=== PATIENT | male | born 1945 | race Caucasian/White ===

== ENCOUNTER → 2019-01-17 | Outpatient (CLI) | payer OTHER ==
[~2019-01-17] VITALS: Ht 185.4 cm; Wt 113.4 kg
[~2019-01-17] MED LIST: AMLODIPINE BESY10 MG PO; ASPIRIN325 PO; ATORVASTATIN CA40 MG PO; CLONAZEPAM 0.50.5 M1 PO; FLOMAX0.4 MG PO; HYDROCHLOROTHIA25 M2 PO; LOPRESSOR50 PO; PLAVIX 75 MG TA75 M1 PO; ZANTAC 150MG T150 MG PO
[2019-01-17 07:06] VITALS: BP 157/65
[2019-01-17 07:08] LABS: HEMATOCRIT 44.5 % (42.0-52.0); HEMOGLOBIN 15.5 gm/dL (14.0-18.0); MCH 33.4 pg (26.0-34.0); MCHC 34.9 g/dL (28.0-37.0); MCV 95.5 fL (80.0-100.0); RBC 4.66 mil/uL (4.50-6.00); RDW 13.6 % (10.5-14.5); WBC 7.2 thou/uL (4.0-11.0)
[2019-01-17 07:19] LABS: CALCIUM 9.8 mg/dL (8.5-10.1); CREATININE 0.9 mg/dL (0.7-1.3); POTASSIUM 4.2 mmol/L (3.5-5.1)
== END | disposition home or self-care (01) ==
LOC: SPEC 06:30
PROVIDERS: Nuclear Medicine Nuclear Cardiology
DX: I70.212 Atherosclerosis of native arteries of extremities with intermittent claudication, left leg (principal); I70.1 Atherosclerosis of renal artery; I10 Essential (primary) hypertension; E78.00 Pure hypercholesterolemia, unspecified; N40.0 Benign prostatic hyperplasia without lower urinary tract symptoms; E78.5 Hyperlipidemia, unspecified; F41.9 Anxiety disorder, unspecified; Z87.891 Personal history of nicotine dependence; Z98.890 Other specified postprocedural states; Z79.899 Other long term (current) drug therapy; Z79.82 Long term (current) use of aspirin

== ENCOUNTER 2019-04-14 10:02 | Inpatient (IN) | payer OTHER ==
[~2019-04-14] VITALS: Ht 185.4 cm; Wt 115.7 kg
[2019-04-14] VITALS (7 sets, daily range): BP systolic 116–193; BP diastolic 37–75
[2019-04-14 10:25] LABS: ABSOLUTE NEUTROPHILS 4.5 thou/uL (1.4-8.2); BASOPHILS 0.6 % (0.0-2.0); EOSINOPHILS 1.2 % (0.0-3.0); HEMATOCRIT 40.4 % (42.0-52.0); HEMOGLOBIN 14.1 gm/dL (14.0-18.0); LYMPHOCYTES 23.8 % (24.0-44.0); MCH 33.1 pg (26.0-34.0); MCHC 34.9 g/dL (28.0-37.0); MCV 94.7 fL (80.0-100.0); MONOCYTES 11.8 % (1.0-8.0); PLATELET COUNT 193 thou/uL (150-400); POLYS 62.6 % (36.0-66.0); RBC 4.27 mil/uL (4.50-6.00); RDW 13.4 % (10.5-14.5); WBC 7.3 thou/uL (4.0-11.0)
[2019-04-14 10:30] LABS: ANION GAP 9 mmol/L (7-16); BUN 11 mg/dL (7-18); CALCIUM 9.3 mg/dL (8.5-10.1); CHLORIDE 96 mmol/L (98-107); CO2 26 mmol/L (21-32); CREATININE 0.9 mg/dL (0.7-1.3); GLUCOSE 114 mg/dL (74-106); SODIUM 131 mmol/L (136-145)
[2019-04-14 10:40] LABS: ALBUMIN 3.8 g/dL (3.4-5.0); MAGNESIUM 1.7 mg/dL (1.8-2.4); SGOT 30 U/L (15-37); SGPT 35 U/L (30-65); TOTAL BILIRUBIN 0.8 mg/dL (<0.1-1.0); TOTAL PROTEIN 6.7 g/dL (6.4-8.2); TROPONIN-I <0.06 ng/mL (<0.06)
--- NOTE | 2019-04-14 18:09 | NUR ---
PT ADMITTED TO CCU AT 1300. STATES HE WAS AT [employer] SITTING AT A TABLE DRINKING COFFEE AND HE PASSED OUT. BP ELEVATED ON ARRIVAL TO CCU AND COMPLAINING OF HEADACHE. DR LEWIS NOTIFIED. PT GIVEN HYDRALAZINE AND TYLENOL. BP IMPROVED AND HEADACHE IMPROVED. CONSULT PLACED TO CARDIOLOGY. CARE PLAN INITIATED. WILL CONTINUE TO MONITOR PT.
[2019-04-15 02:36] VITALS: BP 136/46
--- NOTE | 2019-04-15 03:12 | NUR ---
ASSUMED CARE OF PATIENT AT 1900. VSS, AFEBRILE. EDUCATION GIVEN ABOUT LABS AND DIAGNOSTICS. DENIES ANY MORE SYNCOPAL EPISODES, PAIN OR SOA. REQUESTED CLONAZEPAM FOR SLEEP. ORDER OBTAINED. RESTING WELL THROUGH THE NIGHT. WORKING TOWARDS POC GOALS.
[2019-04-15 05:53] LABS: HEMATOCRIT 40.3 % (42.0-52.0); HEMOGLOBIN 14.2 gm/dL (14.0-18.0); MCH 33.6 pg (26.0-34.0); MCHC 35.2 g/dL (28.0-37.0); MCV 95.4 fL (80.0-100.0); RBC 4.22 mil/uL (4.50-6.00); RDW 13.6 % (10.5-14.5); WBC 7.6 thou/uL (4.0-11.0)
[2019-04-15 05:56] LABS: ANION GAP 8 mmol/L (7-16); BUN 14 mg/dL (7-18); CALCIUM 8.8 mg/dL (8.5-10.1); CHLORIDE 99 mmol/L (98-107); CO2 27 mmol/L (21-32); CREATININE 0.9 mg/dL (0.7-1.3); GLUCOSE 110 mg/dL (74-106); POTASSIUM 3.5 mmol/L (3.5-5.1); SODIUM 134 mmol/L (136-145); TROPONIN-I <0.06 ng/mL (<0.06)
[2019-04-15 07:50] VITALS: BP 162/69
[2019-04-15 11:45] VITALS: BP 153/65
[2019-04-15 15:54] VITALS: BP 140/64
--- NOTE | 2019-04-15 16:06 | NUR ---
ASSUMED CARE OF PT AT SHIFT CHANGE. ASSESSMENT CHARTED. MEDS GIVEN PER NOV. PT ALERT AND ORIENTED, VSS, O2 SATS WNL ON RA. DENIES CP, SOB. PT SB ON MONITOR RUNNING IN 40S-50S, PHYSICIAN AWARE. PT WALKED AROUND UNIT SEVERAL TIMES THIS SHIFT TOLERATING WELL. PT TO HAVE LOOP RECORDER IMPLANT TOMORROW. DENIES CONCERNS AT THIS TIME. WILL CONTINUE TO MONITOR AND FOLLOW POC.
--- NOTE | 2019-04-15 19:52 | EKG ---
[address] [place] [employer] [address] ELECTROCARDIOGRAM REPORT Name: MARISELA HERNANDEZ Room #: 205-P [facility] IN M.R.#: [id number] ������������������ Admission: 04/14/19 ������������������ Attend Phys: Troy Barroso MD Discharge: ������������������ Date of : 43 Report #: [id number] ����������������������������������������������������������������� [id number] THIS REPORT FOR: //name// [facility] ED Test Date: 2019-04-14 Test Time: 10:11:20 Pat Name: MARISELA HERNANDEZ Department: Room: 205 Gender: M Warehouse Representative: MELQUIADES : 1945 Requested By: Car Camacho Order Number: [id number] MD: Joel Dempsey Measurements Intervals Yulan Rate: 51 P: 18 MS: 252 QRS: -49 QRSD: 113 T: 22 QT: 467 QTc: 431 Interpretive Statements Sinus rhythm Prolonged MS interval Left anterior fascicular block Abnormal R-wave progression, late transition No previous ECG available for comparison Electronically Signed On 04-15-2019 19:52:07 CDT by Joel Dempsey [email or web address] ��������������������������������������������� <ELECTRONICALLY SIGNED> ���������������������������������������� By: Joel Dempsey MD ��������������������������������������������� 04/15/191951 10 10 Joel Dempsey MD /JOSEFINA
[2019-04-15 20:04] VITALS: BP 160/60
--- NOTE | 2019-04-16 04:54 | NUR ---
ASSUMED CARE OF PATIENT AT 1900. VSS, AFEBRILE. REMAINS BRADYCARDIC THROUGH THE NIGHT, ASYMPTOMATIC. DENIES PAIN, SOA OR N/V. SLEEPING WELL THROUGH THE NIGHT. ANTICIPATING LOOP MONITOR PLACEMENT TODAY.
[2019-04-16 05:03] VITALS: BP 143/49
[2019-04-16 05:17] LABS: HEMATOCRIT 39.6 % (42.0-52.0); HEMOGLOBIN 13.8 gm/dL (14.0-18.0); MCH 33.4 pg (26.0-34.0); MCV 95.4 fL (80.0-100.0); RBC 4.15 mil/uL (4.50-6.00); RDW 13.6 % (10.5-14.5); WBC 6.2 thou/uL (4.0-11.0)
[2019-04-16 05:28] LABS: CREATININE 0.8 mg/dL (0.7-1.3); POTASSIUM 3.6 mmol/L (3.5-5.1)
[2019-04-16 07:52] VITALS: BP 154/74
[2019-04-16 10:50] VITALS: BP 147/65
--- NOTE | 2019-04-16 12:53 | 2DMMODE ---
[facility] [address] [place] [address] 2 D/M-MODE ECHOCARDIOGRAM Name: HERNANDEZMARISELA Room #: 205-P [facility] IN [facility]#: [id number] ������������� Admission: 04/14/19 ������������� Attend Phys: Troy Barroso MD Discharge: ��� ������������� ��� Date of : 43 Date of Service: 04/16/19 1252 �� Report #: [id number] �������� ��������������������������������������������[id number] THIS REPORT FOR: //name// APPROVED REPORT Study performed: 04/16/2019 10:00:36 EXAM: Comprehensive 2D, Doppler, and color-flow Echocardiogram Patient Location: Echo lab Room #: [facility] Status: routine BSA: 2.39 HR: 57 bpm BP: 154/74 mmHg Rhythm: NSR/arrhythmia Other Information Study Quality: Adequate Indications Syncope Hx: HTN,HLP, PVD. 2D Dimensions RVDd: 36.96 mm IVSd: 13.34 (7-11mm) LVOT Diam: 21.67 (18-24mm) LVDd: 52.99 mm PWd: 10.00 (7-11mm) LVDs: 34.30 (25-40mm) Aortic Root: 37.43 mm Volumes Left Atrial Volume (Systole) Single Plane 4CH: 55.92 mL Single Plane 2CH: 78.24 mL LA ESV Index: 30.00 mL/m2 Aortic Valve AoV Peak Jadon.: 1.72 m/s AO Peak Gr.: 11.86 mmHg LVOT Max P.94 mmHg LVOT Max V: 0.99 m/s KEN Vmax: 2.13 cm2 Mitral Valve E/A Ratio: 1.8 MV Decel. Time: 230.93 ms [facility] [address] [place] [address] 2 D/M-MODE ECHOCARDIOGRAM Name: MARISELA HERNANDEZ Room #: 205-P [facility] IN [facility]#: [id number] ������������� Admission: 04/14/19 ������������� Attend Phys: Troy Barroso MD Discharge: ��� ������������� ��� Date of : 43 Date of Service: 04/16/19 1252 �� Report #: [id number] �������� ��������������������������������������������[id number] MV E Max Jadon.: 0.92 m/s MV A Jadon.: 0.52 m/s MV PHT: 66.97 ms IVRT: 73.82 ms Pulmonary Vein P Vein S: 0.40 m/s P Vein A: 0.25 m/s P Vein D: 0.64 m/s P Vein A Dur.: 133.8 msec P Vein S/D Ratio: 0.63 Tricuspid Valve TR Peak Jadon.: 2.35 m/s RAP Estimate: 5.00 mmHg TR Peak Gr.: 22.05 mmHg PA Pressure: 27.00 mmHg Left Ventricle The left ventricle is normal size. Regional wall motion is not well visualized but grossly normal. Mild basal septal hypertrophy is present. Left ventricular systolic function is normal. LVEF 55%. Moderate diastolic dysfunction is present (pseudonormal filling). Right Ventricle The right ventricle is normal size. The right ventricular systolic function is normal. Atria The left atrium size is normal. The right atrium size is normal. Aortic Valve The aortic valve appears grossly normal. No aortic regurgitation is present. There is no aortic valvular stenosis. Mitral Valve Minimal mitral annular calcification. Trace mitral regurgitation. Tricuspid Valve The tricuspid valve is normal in structure. Trace tricuspid regurgitation. Estimated PAP is 25-30mmHg. Pulmonic Valve Pulmonic valve is not well visualized. [employer] [facility] [address] [place] [address] 2 D/M-MODE ECHOCARDIOGRAM Name: MARISELA HERNANDEZ Room #: 205-P ADM IN .R.#: [id number] ������������� Admission: 04/14/19 ������������� Attend Phys: Troy Barroso MD Discharge: ��� ������������� ��� Date of : 43 Date of Service: 04/16/19 1252 �� Report #: [id number] �������� ��������������������������������������������[id number] The aortic root is normal in size. Ascending aorta is not well visualized. IVC is normal in size and collapses >50% with inspiration. Pericardium There is no pericardial effusion. <Conclusion> Technically difficult study Left ventricular systolic function is normal. Regional wall motion is not well visualized but grossly normal. LVEF 55%. The aortic valve appears grossly normal. No aortic regurgitation or stenosis Minimal mitral annular calcification. Trace mitral regurgitation. Trace tricuspid regurgitation. Estimated pulmonary artery pressure of 25-30mmHg. There is no pericardial effusion. ��������������������������������������������� <ELECTRONICALLY SIGNED> ���������������������������������������� By: Matt Suresh MD, FACC ��������������������������������������������� 04/16/19 1252 125 125 Matt Suresh MD, FACC /INF
[2019-04-16 13:32] VITALS: BP 147/65
[2019-04-16 14:11] VITALS: BP 147/65
--- NOTE | 2019-04-16 14:20 | NUR ---
ASSUMED CARE OF PT AT SHIFT CHANGE. ASSESSMENT CHARTED. MEDS GIVEN PER NOV. PT ALERT AND ORIENTED, VSS, DENIES PAIN, O2 SATS WNL ON ROOM AIR, DENIES CP/SOB. LOOP RECORDER PUT IN THIS SHIFT. DC ORDERS ACKNOWLEDGED AND IMPLEMENTED. DC PAPERWORK DISCUSSED WITH PT, COMMUNICATES UNDERSTANDING. PT LEFT UNIT AT APPROX 1420 WITH ALL BELONGINGS. IV REMOVED, TELE REMOVED.
--- NOTE | 2019-04-18 12:11 | P ---
[place] [address] PROCEDURE REPORT Name: MARISELA HERNANDEZ Room #: 205-P [facility] IN ..#: [id number] Admission: 04/14/19 ������������������ Attend Phys: Troy Barroso MD Discharge: 04/16/19 ������������������ Date of : 43 Report #: [id number] THIS REPORT FOR: //name// CC: [facility] physician/PCP Floyd Barroso PREOPERATIVE DIAGNOSIS: Syncope. HISTORY: The patient is a 74-year-old who came in with a syncopal episode. He is here for implantable loop recorder insertion. DESCRIPTION OF PROCEDURE: The patient underwent informed consent. He was prepped and draped in a sterile fashion. I injected lidocaine at the incision site. Incision was made. The device was injected under the skin and a single layer of suture was sutured. Surgical glue was placed to the outer skin layer. A dressing was placed. There were no procedure related complications. The implanted device was a [employer] Confirm model #[id number], serial #[id number]. CONCLUSIONS: Successful implantable loop recorder insertion. ��������������������������������������������� <ELECTRONICALLY SIGNED> ���������������������������������������� By: Joel Dempsey MD ��������������������������������������������� 04/18/19 1211 1257 0207 Joel Dempsey MD /nt
--- NOTE | 2019-04-18 12:11 | HC ---
[facility] [place] [address] CONSULTATION Name: MARISELA HERNANDEZ Room #: [facility] IN ..#: [id number] Admission: 04/14/19 ������������������ Attend Phys: Troy Barroso MD Discharge: 04/16/19 ������������������ Date of : 43 Report #: [id number] THIS REPORT FOR: //name// CC: [facility] physician/PCP Floyd Barroso CARDIOLOGY CONSULTATION REASON FOR CONSULTATION: Syncope. HISTORY OF PRESENT ILLNESS: The patient is a 74-year-old patient who follows with Dr. Rios. He has a history of carotid artery disease status post carotid endarterectomy in 2014, hypertension, hyperlipidemia, BPH, prostate cancer with a nonischemic stress test back in 2015 and status post left common iliac stent in 12/2018. His most recent echo was in 11/2018 showing EF of 55-60%. The patient reports that he had a syncopal episode yesterday. He was at [employer], sitting and then without any significant prodrome passed out. EMS came, performed an EKG, which I reviewed, which showed sinus rhythm. His 12-lead EKG shows sinus rhythm with no ischemic changes. He has been monitored on telemetry with some sinus bradycardia while sleeping, but otherwise no significant arrhythmias. REVIEW OF SYSTEMS: A 12-point review of systems was performed and was negative other than what I mentioned above. He denies any chest pain, chest tightness. He denies PND or orthopnea. PAST MEDICAL HISTORY: As above. SOCIAL HISTORY: Does not smoke. FAMILY HISTORY: Noncontributory. ALLERGIES: Reviewed. MEDICATIONS: Reviewed. PHYSICAL EXAMINATION: VITAL SIGNS: Reviewed. GENERAL: No acute distress. HEENT: Oropharynx clear. NECK: Supple, no thyromegaly. HEART: Regular rate and rhythm. LUNGS: Clear to auscultation bilaterally. ABDOMEN: Soft, nontender, nondistended. EXTREMITIES: No clubbing, cyanosis, edema. NEUROLOGIC: Cranial nerves 2-12 [address] [address] CONSULTATION Name: MARISELA HERNANDEZ Room #: [address] [place] [address]#: [id number] Admission: 04/14/19 ������������������ Attend Phys: Troy Barroso MD Discharge: 04/16/19 ������������������ Date of : 43 Report #: [id number] LABORATORY AND DIAGNOSTIC DATA: CBC is normal. Chemistry is normal with a creatinine of 0.9. Troponins are negative x 3. ASSESSMENT: Syncope, etiology of this is unclear. Telemetry has been unrevealing. We will perform an echocardiogram tomorrow. We will then have the patient undergo implantation of an implantable loop recorder. ��������������������������������������������� <ELECTRONICALLY SIGNED> ���������������������������������������� By: Joel Dempsey MD ��������������������������������������������� 04/18/19 1211 1106 1253 Joel Dempsey MD /nt
== END 2019-04-16 14:20 | disposition home or self-care (01) | DRG 261 ==
LOC: ER 10:02 → EROBS 12:17 → 2N 12:17 → ENTRNSPT 04-16 14:09 → EDTRNSPTSTS 04-16 14:16 → 2N 04-16 14:20
PROVIDERS: Emergency Medicine; ADMIT Hospitalist
PROC: 0JH602Z Insertion of Monitoring Device into Chest Subcutaneous Tissue and Fascia, Open Approach (ICD-10-PCS; principal; 2019-04-16)
DX: R00.1 Bradycardia, unspecified (principal); E87.1 Hypo-osmolality and hyponatremia; I10 Essential (primary) hypertension; E78.00 Pure hypercholesterolemia, unspecified; F41.9 Anxiety disorder, unspecified; N40.0 Benign prostatic hyperplasia without lower urinary tract symptoms; E83.42 Hypomagnesemia; I25.10 Atherosclerotic heart disease of native coronary artery without angina pectoris; E78.5 Hyperlipidemia, unspecified; I73.9 Peripheral vascular disease, unspecified; I65.29 Occlusion and stenosis of unspecified carotid artery; Z95.820 Peripheral vascular angioplasty status with implants and grafts; Z79.02 Long term (current) use of antithrombotics/antiplatelets; Z85.46 Personal history of malignant neoplasm of prostate; Z79.899 Other long term (current) drug therapy; Z79.82 Long term (current) use of aspirin; Z87.891 Personal history of nicotine dependence
CPT/HCPCS: 10081

== ENCOUNTER → 2020-03-04 | Outpatient (CLI) | payer OTHER ==
[~2020-03-04] MED LIST changes: +BENICAR40 MG PO; +NAPROXEN250 MG PO
== END ==
LOC: SJCVCIMAG 08:00
PROVIDERS: ATTEND Internal Medicine Cardiovascular Disease
DX: I65.23 Occlusion and stenosis of bilateral carotid arteries (principal); I44.4 Left anterior fascicular block; I73.9 Peripheral vascular disease, unspecified; R94.31 Abnormal electrocardiogram [ECG] [EKG]; I48.0 Paroxysmal atrial fibrillation; I49.5 Sick sinus syndrome; Z98.61 Coronary angioplasty status; Z87.891 Personal history of nicotine dependence; Z95.828 Presence of other vascular implants and grafts; Z79.899 Other long term (current) drug therapy; Z98.890 Other specified postprocedural states

== ENCOUNTER → 2020-03-05 | Outpatient (CLI) | payer OTHER | LOC: LAB 03-04 11:39 | PROVIDERS: ATTEND Internal Medicine Cardiovascular Disease | DX: Z01.818 Encounter for other preprocedural examination (principal); Z11.59 Encounter for screening for other viral diseases ==

== ENCOUNTER 2020-03-10 08:58 | Outpatient (CLI) | payer OTHER ==
[~2020-03-10] VITALS: Ht 182.9 cm; Wt 114.3 kg
[~2020-03-10 08:58] MED LIST changes: -BENICAR40 MG PO; -NAPROXEN250 MG PO
[2020-03-10 09:43] LABS: ABSOLUTE NEUTROPHILS 4.4 thou/uL (1.4-8.2); BASOPHILS 0.7 % (0.0-2.0); EOSINOPHILS 0.7 % (0.0-3.0); HEMOGLOBIN 14.7 gm/dL (14.0-18.0); MCH 34.7 pg (26.0-34.0); MCV 99.2 fL (80.0-100.0); MONOCYTES 11.7 % (1.0-8.0); PLATELET COUNT 208 thou/uL (150-400); POLYS 65.9 % (36.0-66.0); RBC 4.23 mil/uL (4.50-6.00); RDW 13.8 % (10.5-14.5); WBC 6.7 thou/uL (4.0-11.0)
[2020-03-10 09:45] VITALS: BP 165/67
[2020-03-10 09:53] LABS: CALCIUM 9.2 mg/dL (8.5-10.1); CREATININE 0.8 mg/dL (0.7-1.3); POTASSIUM 4.1 mmol/L (3.5-5.1)
[2020-03-10 09:56] LABS: APTT 26.4 Seconds (24.5-32.8); INR 1.1; PROTIME 11.1 Seconds (9.3-11.4)
[2020-03-10 09:59] LABS: ALBUMIN 3.8 g/dL (3.4-5.0); TOTAL BILIRUBIN 0.9 mg/dL (0.2-1.0); TOTAL PROTEIN 6.6 g/dL (6.4-8.2)
[2020-03-10] MEDS ORDERED: NAPROXEN250 MG PO (09:59)
[2020-03-10 15:30] VITALS: BP 180/74
[2020-03-10] MEDS ORDERED: BENICAR40 MG PO (17:30)
[2020-03-10 19:00] VITALS: BP 166/76
[2020-03-10 19:20] VITALS: BP 165/75
[2020-03-11 00:30] VITALS: BP 169/73
[2020-03-11 05:20] VITALS: BP 167/70
[2020-03-11 08:11] VITALS: BP 144/66
--- NOTE | 2020-03-11 10:21 | P ---
[facility] [address] [address] PROCEDURE REPORT Name: MARISELA HERNANDEZ [id number] Admission: 03/10/20 Attend Phys: Joel Dempsey MD Discharge: Date of : 43 Report #: [id number] THIS REPORT FOR: cc: [facility] - [facility] physician/PCP [facility] - [facility] family physician/PCP Joel Dempsey MD ~ CC: [facility] physician/PCP Joel Dempsey DATE OF SERVICE: 03/10/2020 PACEMAKER IMPLANTATION PREOPERATIVE DIAGNOSIS: 1. Sick sinus syndrome. 2. Syncope. 3. Sinus arrest. POSTOPERATIVE DIAGNOSES: 1. Sick sinus syndrome. 2. Syncope. 3. Sinus arrest. HISTORY: The patient is a 75-year-old with a history of recurrent syncope, status post implantable loop recorder insertion. The patient has had multiple recent episodes of sinus arrest. He is here for dual chamber pacemaker implantation. ANESTHESIA: The patient underwent MAC anesthesia with no anesthesia related complications. PROCEDURES PERFORMED: 1. Dual-chamber pacemaker implantation. 2. Explantation of an implantable loop recorder. DESCRIPTION OF PROCEDURE: The patient underwent informed consent. We discussed the details of the procedure including the risks, which include but not limited to bleeding, infection, vascular damage, cardiac perforation and pneumothorax. He understood these risks and is willing to proceed. The patient was brought to EP laboratory in fasting and sedated state, prepped and draped in a sterile fashion, received IV antibiotics prior to initiation of the procedure and underwent a venogram showing patency of the left axillary vein. Next, lidocaine was injected below the level of left clavicle. Incision was made, pocket was created over the prepectoral fascia and access was obtained twice to left axillary vein using the extrathoracic approach with sheaths [facility] [address] [place] [address] PROCEDURE REPORT Name: MARISELA HERNANDEZ Room #: 215-P [facility] Rodríguez#: [id number] Admission: 03/10/20 Attend Phys: Joel Dempsey MD Discharge: Date of : 43 Report #: [id number] positioned using the modified Seldinger technique. Next, leads were positioned in the right ventricular apex and right atrial appendage both with adequate pacing and sensing thresholds. Leads were sutured to the prepectoral fascia, connected to the device. Device was placed in the pocket. Pocket was closed in 2 layers using 2-0 for the deep layer, 3-0 for the mid layer and surgical glue was placed outer skin layer. Next, an incision was made at the site of the prior implantable loop recorder. Device was removed and the pocket was sutured closed with 3-0 Vicryl. Surgical glue was placed on outer skin layer. The patient awoke neurologically and hemodynamically intact. No complications and no significant bleeding. The implanted pacemaker was a [employer] model #W3DR01, serial # [id number]. Atrial lead was a Med[employer]onic model #5076, 52 cm, serial # [id number]. RV lead was a [employer] model #5076, serial # [id number]. Atrial lead demonstrated a P-wave of 2.3 millivolts, pacing impedance of 893 ohms and pacing threshold 0.5 volts at 0.4 milliseconds. RV lead demonstrated R-wave of 6 millivolts, pacing impedance of 707 ohms and pacing threshold 0.5 volts at 0.4 milliseconds. The device was programmed to the DDDR 60-130 mode. CONCLUSIONS: 1. Successful dual-chamber pacemaker implantation. 2. Satisfactory atrial and ventricular pacing thresholds. 3. Successful explantation of an implantable loop recorder. <ELECTRONICALLY SIGNED> By: Joel Dempsey MD 03/11/20 1021 1429 1830 Joel Dempsey MD /nt
[2020-03-11 10:39] VITALS: BP 144/66
== END 2020-03-11 13:36 | disposition home or self-care (01) ==
LOC: CATH 08:58 → 2N 15:46 → CATH 03-11 13:36
PROVIDERS: ATTEND Internal Medicine Cardiovascular Disease
DX: I49.5 Sick sinus syndrome (principal); R55 Syncope and collapse; I45.5 Other specified heart block; I10 Essential (primary) hypertension; E78.00 Pure hypercholesterolemia, unspecified; N40.0 Benign prostatic hyperplasia without lower urinary tract symptoms; E78.5 Hyperlipidemia, unspecified; F41.9 Anxiety disorder, unspecified; Z98.890 Other specified postprocedural states; Z79.899 Other long term (current) drug therapy; Z85.46 Personal history of malignant neoplasm of prostate; Z87.891 Personal history of nicotine dependence
CPT/HCPCS: 10081; 62110; 62900; 70005

== ENCOUNTER → 2020-06-25 | Outpatient (CLI) | payer OTHER ==
[~2020-06-25] MED LIST changes: +BENICAR40 MG PO; +NAPROXEN250 MG PO
== END ==
LOC: SJCVCIMAG 09:05
PROVIDERS: ATTEND Internal Medicine Cardiovascular Disease
DX: Z45.018 Encounter for adjustment and management of other part of cardiac pacemaker (principal); M25.551 Pain in right hip; I73.9 Peripheral vascular disease, unspecified; Z95.820 Peripheral vascular angioplasty status with implants and grafts; Z79.899 Other long term (current) drug therapy; Z87.891 Personal history of nicotine dependence

== ENCOUNTER → 2020-11-20 | Outpatient (CLI) | payer OTHER | LOC: SJCVCIMAG 10:50 | PROVIDERS: ATTEND Internal Medicine Cardiovascular Disease | DX: Z01.810 Encounter for preprocedural cardiovascular examination (principal); I44.0 Atrioventricular block, first degree; R06.00 Dyspnea, unspecified; R42 Dizziness and giddiness; E78.5 Hyperlipidemia, unspecified; I10 Essential (primary) hypertension; Z87.891 Personal history of nicotine dependence; Z79.82 Long term (current) use of aspirin; Z79.899 Other long term (current) drug therapy ==

== ENCOUNTER → 2021-01-08 | Outpatient (CLI) | payer OTHER | LOC: SJCVC 15:20 | PROVIDERS: ATTEND Internal Medicine Cardiovascular Disease | DX: R94.31 Abnormal electrocardiogram [ECG] [EKG] (principal); I44.4 Left anterior fascicular block; I44.0 Atrioventricular block, first degree; I48.0 Paroxysmal atrial fibrillation; I49.5 Sick sinus syndrome; I10 Essential (primary) hypertension; E78.5 Hyperlipidemia, unspecified; F41.9 Anxiety disorder, unspecified; Z95.0 Presence of cardiac pacemaker; Z85.46 Personal history of malignant neoplasm of prostate; Z79.899 Other long term (current) drug therapy; Z87.891 Personal history of nicotine dependence ==